=== PATIENT | female | born 1955 | race Caucasian/White ===

== ENCOUNTER 2016-08-28 06:06 | Inpatient (IN) | payer OTHER ==
[2016-08-27 10:08] VITALS: BMI 34.1
[2016-08-28] VITALS (71 sets, daily range): BP systolic 17–188; BP diastolic 48–92; PULSE 63–115; RESP 16–26; Ht 157.5 cm; Wt 83.5 kg
[~2016-08-28] VITALS: Ht 157.5 cm; Wt 83.5 kg
[2016-08-28] MEDS ORDERED: NEOSTIGMINE 3 MG/3 ML SYRINGE ONE (06:43)
[2016-08-28] MEDS ORDERED: FENTAnyl 50 MCG/ML VIAL ONE ×2 (06:43→09:31)
[2016-08-28] MEDS ORDERED: ROCURONIUM 50 MG INJ ONE (06:43)
[2016-08-28] MEDS ORDERED: PROPOFOL 20 ML ONE (06:43)
[2016-08-28] MEDS ORDERED: GLYCOPYRROLATE 0.4 MG INJ ONE (06:43)
[2016-08-28] MEDS ORDERED: LIDOCAINE 2% (SDV) 5 ML INJ ONE (06:43)
[2016-08-28] MEDS ORDERED: ONDANSETRON 4 MG INJ ONE (06:44)
[2016-08-28] MEDS ORDERED: MIDAZOLAM 1 MG/ML 2 ML INJ ONE (06:44)
[2016-08-28] MEDS ORDERED: DEXAMETHASONE 4 MG/ML 1 ML INJ ONE (06:44)
[2016-08-28] MEDS ORDERED: CEFAZOLIN 1 GM INJ ONE (06:45)
[2016-08-28] MEDS ORDERED: MEPERIDINE 25 MG INJ IV PRN (07:00)
[2016-08-28] MEDS ORDERED: ATROPINE 1 MG/10 ML SYRINGE IV PRN (07:00)
[2016-08-28] MEDS ORDERED: HYDROmorphONE (0.2 MG/ML) 10ML SYG IV PRN ×3 (07:00)
[2016-08-28] MEDS ORDERED: ONDANSETRON 4 MG INJ IV PRN ×2 (07:00→22:00)
[2016-08-28] MEDS ORDERED: FENTAnyl 50 MCG/ML VIAL IV PRN ×2 (07:00)
[2016-08-28] MEDS ORDERED: OXYCODONE/ACETAMINOPHEN (5/325) TAB PO PRN ×2 (07:00)
[2016-08-28] MEDS ORDERED: LABETALOL HCL 20MG INJ IV PRN (07:00)
[2016-08-28] MEDS ORDERED: EPHEDrine SULFATE 50 MG/5 ML SYG IV PRN (07:00)
[2016-08-28] MEDS ORDERED: morphine (1 MG/ML) 10ML SYRINGE IV PRN ×3 (07:00)
[2016-08-28] MEDS ORDERED: hydrALAzine 20 MG INJ IV PRN (07:00)
[2016-08-28] MEDS ORDERED: MIDAZOLAM 1 MG/ML 2 ML INJ IV PRN (07:00)
[2016-08-28] MEDS ORDERED: DIPHENHYDRAMINE 50 MG INJ IV PRN (07:00)
[2016-08-28] MEDS ORDERED: ALBU90AE INHALATION (07:10)
[2016-08-28] MEDS ORDERED: BECL8.7A INH (07:10)
[2016-08-28] MEDS ORDERED: LORA10TA3 PO (07:10)
[2016-08-28] MEDS ORDERED: LOSA50TA6 PO (07:18)
[2016-08-28] MEDS ORDERED: SIMV5TAB50 PO (07:18)
[2016-08-28] MEDS ORDERED: LEVO75TA5 PO (07:18)
[2016-08-28] MEDS ORDERED: VIT1TABL85 PO (07:18)
[2016-08-28] MEDS ORDERED: OMEP20CA16 PO (07:18)
[2016-08-28] MEDS ORDERED: FLUT9.9S NASAL (07:18)
[2016-08-28] MEDS ORDERED: RANI300T3 PO (07:18)
[2016-08-28] MEDS ORDERED: CALC-84 PO (07:18)
[2016-08-28] MEDS ORDERED: LIDOCAINE 2%/EPI 30 ML INJ ONE (07:40)
[2016-08-28] MEDS ORDERED: THROMBIN 5000 UNIT VIAL ONE (07:40)
[2016-08-28] MEDS ORDERED: POLYMYXIN/BACITRACIN 1L IRRIG ONE (07:41)
[2016-08-28] MEDS ORDERED: SUCCINYLCHOLINE CHLORIDE 100 MG/5 ML SYG IV ONE (07:53)
[2016-08-28] MEDS ORDERED: FUROSEMIDE 20 MG INJ ONE (09:02)
[2016-08-28] MEDS ORDERED: LABETALOL HCL 20MG INJ ONE (09:02)
[2016-08-28] MEDS ORDERED: hydrALAzine 20 MG INJ ONE (09:31)
[2016-08-28] MEDS ORDERED: HEMOSTATIC MATRIX/ THROMBIN 1 EA SYG ZFS ONE (09:54)
[2016-08-28] MEDS ORDERED: POLYMYXIN/BACITRACIN 1L IRRIG IRR ONE (09:55)
[2016-08-28] MEDS ORDERED: GELATIN SIZE 100 SPONGE ONE (10:36)
[2016-08-28] MEDS ORDERED: NALOXONE (0.4 MG/ML) INJ IV PRN (11:30)
[2016-08-28] MEDS: DOCUSATE SODIUM 100 MG CAP PO SCH ×2 (11:30→21:09)
[2016-08-28] MEDS ORDERED: ACETAMINOPHEN 325 MG TAB PO PRN (11:30)
[2016-08-28] MEDS ORDERED: HYDROmorphONE 1 MG/ML SYG IV PRN (11:30)
[2016-08-28] MEDS ORDERED: HYDROCODONE/APAP (5/325) TAB PO PRN (11:30)
[2016-08-28] MEDS ORDERED: GELATIN SIZE 100 SPONGE TOP ONE (11:34)
[2016-08-28] MEDS ORDERED: CEFAZOLIN 2 GM/50 ML (PMX) 100 ML IVPB SCH (12:00)
[2016-08-28] MEDS ORDERED: HYDROmorphONE 0.2 MG/ML PCA IV SCH (12:30)
[2016-08-28] MEDS: CEFAZOLIN 2 GM/50 ML (PMX) 100 ML IVPB SCH ×2 (13:54→19:25)
--- NOTE | 2016-08-28 15:10 | RADRPT ---
PROCEDURE: Intraoperative imaging of the cervical spine. CLINICAL INDICATION: Neck pain. Intraoperative. TECHNIQUE: 3 images of the cervical spine were obtained in the operating room with portable equipm ent. No radiologist was in attendance. COMPARISON: No prior study is available for comparison. FINDINGS: Surgical instruments are noted overlying the cervical spine. The final images demonstrate anterior fusion with screws at C4-5, C5-6, and C6-7. Intervertebral cages are present at C4-5, C5-6, and C6- 7. IMPRESSION: 1. Intraoperative imaging of the cervical spine. RPTAT: QQ .Nicholas Sabillon MD, MD Date Time Electronically viewed and signed by .Nicholas Sabillon MD, MD on 08/28/2016 15:09 .R/
[2016-08-28] MEDS: LORATADINE 10 MG TAB PO SCH (15:25)
[2016-08-28] MEDS: LOSARTAN 50 MG TAB PO SCH (15:26)
[2016-08-28] MEDS: VITAMIN B COMPLEX/VIT C CAP PO SCH (15:26)
[2016-08-28] MEDS: CALCIUM/VITAMIN D (500/200) TAB PO SCH (16:00)
[2016-08-28] MEDS ORDERED: PANTOPRAZOLE (EC) 40 MG TAB PO SCH (16:00)
--- NOTE | 2016-08-28 17:11 | RADRPT ---
PROCEDURE: CT Cervical Spine without contrast. CLINICAL INDICATION: 60-year-old female with postoperative evaluation. TECHNIQUE: The study was performed on a multislice multidetector CT scanner. Spiral axial 1 mm im ages were obtained through the cervical spine and reformatted at 2.5 mm slice thickness without. 1 or more of the following dose reduction techniques were utilized: Automated exposure control, adjus tment of the mA and/or kV according to patient's size, iterative reconstruction technique. Coronal and sagittal reformations were obtained. The images were reviewed on a PACS workstation. RADIATION DOSE: CTDIvol: 31.5 mGyDLP: 681.3 mGy-cm COMPARISON: No prior studies are available for comparison. FINDINGS: There are postoperative changes from anterior cervical discectomy and fusion at C4-5, C5-6 and C6-7 with anterior interbody fusion devices in place. The hardware is intact, with satisfactory alignmen t. The alignment of the cervical spine is within normal limits. There are postoperative changes in the prevertebral soft tissues. The remaining intervertebral discs are preserved. The marrow densi ty is within normal limits. The remaining vertebral body heights are maintained. The cervical mao l is unremarkable. There is a no bone destruction or sclerosis. The paraspinal soft tissues are unre markable. No significant paraspinal soft tissue swelling. C2-3: The posterior margin of the disc, thecal sac and neural foramina are normal in appearance. C3-4: There is a 1 mm posterior disc/osteophyte complex. The thecal sac and neural foramina are pat ent. C4-5: No residual disc material is seen. The thecal sac and neural foramina are patent. C5-6: No residual disc material is seen. The thecal sac and neural foramina are patent. C6-7: No residual disc material is seen. The thecal sac and neural foramina are patent. C7-T1: The posterior margin of the disc, thecal sac and neural foramina are normal in appearance. IMPRESSION: 1. Postoperative change from anterior cervical discectomy and fusion at C4-5, C5-6 and a C6-7 with anterior interbody fusion devices in place and satisfactory alignment of the surgical hardware. RPTAT: HGAS .Gera Lambert MD, MD Date Time Electronically viewed and signed by .Gera Lambert MD, MD on 08/28/2016 17:10 .S/
--- NOTE | 2016-08-28 19:47 | HP ---
DATE OF ADMISSION: 08/28/2016 CHIEF COMPLAINT/HISTORY OF PRESENT ILLNESS: The patient is a 60-year-old female who was se en by Dr. Herr as an outpatient for chronic neck pain and radiculopathy to the right upper extremit y. The patient also had associated numbness and tingling as well as back pain in the right lower ext remity with associated numbness and tingling. The patient underwent MRI of the C-spine as well as allison mbar spine which revealed extensive degenerative changes on multiple levels. MRI of the brain revea led recurrent cyst. The patient had failed conservative treatment. Patient was brought in to [facility] and underwent anterior cervical decompression and fusion at C4 through C7. Patient postop eratively denies any chest pain or shortness of breath, no abdominal pain. No leg edema. No reporte d vomiting. The patient is breathing comfortably and is awake, alert, and is able to move all extre mities. The patient is being admitted for further evaluation and management. REVIEW OF SYSTEMS: Rather limited due to recent postoperative state. PAST SURGICAL HISTORY: None. PAST MEDICAL HISTORY: The patient has some sort of urinary symptoms for which she underwent cystosc opy, details not available. ALLERGIES: NONE. SOCIAL HISTORY: No smoking, no alcohol. FAMILY HISTORY: Noncontributory. PHYSICAL EXAMINATION: GENERAL: The patient is conscious, awake, alert. VITAL SIGNS: Temperature 98.3, pulse 76, respirations 21, blood pressure 140/72, O2 saturation 97% on 2 liters nasal cannula. HENT: Conjunctivae and lids normal. Oropharynx examination was deferred due to C-spine collar. CHEST: Fairly clear. CARDIOVASCULAR: Normal. No murmur. ABDOMEN: Soft, nondistended, nontender. EXTREMITIES: No leg edema. NEUROLOGIC: The patient is awake, alert, follows simple commands, moves all extremities. GENITOURINARY: A Rowell catheter in place draining clear urine. LABORATORY DATA: Labs revealed normal coagulation profile, hemoglobin is 14.4. WBC 6.7, platelets 240, creatinine 0.8. Potassium 3.6, sodium 139, BUN 17, glucose 104. EKG revealed normal sinus rhy thm with no acute ST changes. Chest x-ray unremarkable. IMPRESSION: 1. Status post cervical spinal stenosis, status post anterior cervical diskectomy and fusion at C4 through C7. 2. Hypothyroidism. 3. Gastroesophageal reflux disease. 4. Asthma. 5. Dyslipidemia. 6. Hypertension. PLAN: 1. The patient will be admitted in ICU and will be started on clear liquid diet, which will be adva nced as tolerated. 2. The patient will be continued on Synthroid, ____ and Cozaar. We will continue to follow her fr om a medical standpoint. The patient will receive IV cefazolin as per protocol and for dyslipidemia the patient will be started on Lipitor. 3. We will use SCD for DVT prophylaxis. We will continue to follow her. Dictated By: FELICIA PASTRANA/NEWTON Conf#: [id number] DID#: [id number]
[2016-08-28] MEDS ORDERED: RANITIDINE 150 MG TAB PO SCH (21:00)
[2016-08-28] MEDS: D5W-0.45 NACL + KCL 20 MEQ 1,000 ML IV SCH (21:09)
[2016-08-28] MEDS: ATORVASTATIN 10 MG TAB PO SCH (21:09)
[2016-08-29] VITALS (12 sets, daily range): BP systolic 104–120; BP diastolic 53–75; PULSE 42–96; RESP 10–26
[2016-08-29] MEDS: CEFAZOLIN 2 GM/50 ML (PMX) 100 ML IVPB SCH ×2 (00:54→06:06)
[2016-08-29] MEDS: LEVOTHYROXINE 75 MCG TAB PO SCH (06:06)
[2016-08-29 07:39] LABS: CALCIUM 8.5 mg/dl (8.4-10.2); CREATININE 0.68 mg/dl (0.44-1.00); POTASSIUM 3.1 mmol/L (3.5-5.1)
[2016-08-29] MEDS ORDERED: POTASSIUM CHLORIDE 20 MEQ POWDER FOR ORAL SOLN PO ONE (08:30)
[2016-08-29] MEDS: LORATADINE 10 MG TAB PO SCH (09:26)
[2016-08-29] MEDS: CALCIUM/VITAMIN D (500/200) TAB PO SCH (09:26)
[2016-08-29] MEDS: DOCUSATE SODIUM 100 MG CAP PO SCH ×2 (09:27→22:04)
[2016-08-29] MEDS: VITAMIN B COMPLEX/VIT C CAP PO SCH (09:28)
[2016-08-29] MEDS: LOSARTAN 50 MG TAB PO SCH (09:28)
[2016-08-29 10:11] LABS: HEMATOCRIT 35.2 % (37.0-47.0); HEMOGLOBIN 11.4 g/dl (12.0-16.0)
[2016-08-29] MEDS ORDERED: VITAMIN A & D 5 GM OINT PACKET TOP ONE (11:24)
[2016-08-29] MEDS: PANTOPRAZOLE (EC) 40 MG TAB PO SCH (12:23)
[2016-08-29] MEDS: D5W-0.45 NACL + KCL 20 MEQ 1,000 ML IV SCH ×2 (12:23→21:10)
--- NOTE | 2016-08-29 12:36 | PN ---
Date/Time of Note Date/Time of Note DATE: 08/29/16 TIME: 12:35 Assessment/Plan VTE Prophylaxis VTE Prophylaxis Intervention: other Lines/Catheters IV Catheter Type (from Nrs): Saline Lock Urinary Cath still in place: Yes Reason Cath still needed: skin wounds contaminated by urine Assessment/Plan Chief Complaint/Hosp Course 1. Status post cervical spinal stenosis, status post anterior cervical diskectomy and fusion at C4 through C7. 2. Hypothyroidism. 3. Gastroesophageal reflux disease. 4. Asthma. 5. Dyslipidemia. 6. Hypertension. Problems: Subjective 24 Hr Interval Summary Free Text/Dictation Patient denies any pain Exam/Review of Systems Vital Signs Vitals Vital Signs Date Time Temp Pulse Resp B/P Pulse Ox O2 Delivery O2 Flow Rate FiO2 08/29/16 10:00 74 22 104/75 94 Nasal Cannula 08/29/16 08:00 2.0 08/29/16 08:00 97.5 Intake and Output 08/28/16 08/28/16 08/29/16 15:00 23:00 07:00 Intake Total 1800 ml 1340 ml 965 ml Output Total 870 ml 2600 ml 545 ml Balance 930 ml -1260 ml 420 ml Exam Constitutional: well developed Head: atraumatic, normocephalic Neck: supple Respiratory: diminished breath sounds Cardiovascular: regular rate and rhythm Gastrointestinal: non-tender, soft Extremities: normal pulses Results Result Diagram: 08/29/16 0530 08/29/16 0530 Results 24 hrs Laboratory Tests Test 08/29/16 05:30 Hemoglobin 11.4 L Hematocrit 35.2 L Sodium Level 143 Potassium Level 3.1 L Chloride Level 108 Carbon Dioxide Level 23 Anion Gap 15 Blood Urea Nitrogen 12 Creatinine 0.68 Glucose Level 153 Calcium Level 8.5 Medications Medications Current Medications Loratadine (Claritin) 10 mg DAILY PO Last administered on 08/29/16 09:26; Admin Dose 10 MG; Start 08/28/16 at 16:00 Losartan Potassium (Cozaar) 50 mg DAILY PO Last administered on 08/29/16 09:28 ; Admin Dose 50 MG; Start 08/28/16 at 16:00 Calcium/Vitamin D ([place]/ Vit-D (500/200)) 1 tab DAILY PO Last administered on 08/29/16 09:26; Admin Dose 1 TAB; Start 08/28/16 at 16:00 Atorvastatin Calcium (Lipitor) 10 mg QHS PO Last administered on 08/28/16 21: 09; Admin Dose 10 MG; Start 08/28/16 at 21:00 Vitamin B Complex/ Vitamin C (Beroc[place]) 1 cap DAILY PO Last administered on 08/29 09:28; Admin Dose 1 CAP; Start 08/29/16 at 09:00 Acetaminophen/ Hydrocodone Bitart ([place] (5/325)) 2 tab Q4H PRN PO PAIN LEVEL 6 -10; Start 08/28/16 at 11:30 Docusate Sodium (Colace) 100 mg BID PO Last administered on 08/29/16 09:27; Admin Dose 100 MG; Start 08/28/16 at 11:30 Acetaminophen (Tylenol Tab) 650 mg Q4H PRN PO TEMP GREATER THAN 101F OR [place] Last administered on 08/28/16 21:09; Admin Dose 650 MG; Start 08/28/16 at 11:30 Naloxone HCl (Narcan) 0.2 mg Q2M PRN IV RR 8 BREATHS/MIN OR LESS; Start at 11:30 Hydromorphone HCl 0.5 mg 0.5 mg Q2H PRN IV PAIN; Start 08/28/16 at 11:30 Potassium Chloride/Dextrose/ Sod Cl (D5-1/2ns + KCl 20 Meq) 1,000 ml @ 75 mls/ hr [id number] IV Last administered on 08/29/16 12:23; Admin Dose 75 MLS/HR; Start 08/28/16 at 18:30 Ondansetron HCl (Zofran Inj) 4 mg Q6H PRN IV NAUSEA AND/OR VOMITING Last administered on 08/28/16 22:06; Admin Dose 4 MG; Start 08/28/16 at 22:00 Pantoprazole (Protonix Tab) 40 mg DAILY@06 PO Last administered on 08/29/16 12 :23; Admin Dose 40 MG; Start 08/29/16 at 10:00 REJI FREY Aug 29, 2016 12:36
[2016-08-29] MEDS: ATORVASTATIN 10 MG TAB PO SCH (22:03)
[2016-08-30] MEDS: D5W-0.45 NACL + KCL 20 MEQ 1,000 ML IV SCH ×2 (01:53→23:54)
[2016-08-30] MEDS: LEVOTHYROXINE 75 MCG TAB PO SCH (05:53)
[2016-08-30] MEDS: PANTOPRAZOLE (EC) 40 MG TAB PO SCH (05:54)
[2016-08-30 08:00] VITALS: BP 129/72; RESP 16
[2016-08-30] MEDS: DOCUSATE SODIUM 100 MG CAP PO SCH ×2 (08:41→20:08)
[2016-08-30] MEDS: LORATADINE 10 MG TAB PO SCH (08:41)
[2016-08-30] MEDS: CALCIUM/VITAMIN D (500/200) TAB PO SCH (08:42)
[2016-08-30] MEDS: LOSARTAN 50 MG TAB PO SCH (08:42)
[2016-08-30] MEDS: VITAMIN B COMPLEX/VIT C CAP PO SCH (08:43)
--- NOTE | 2016-08-30 12:30 | PN ---
Date/Time of Note Date/Time of Note DATE: 08/30/16 TIME: 12:30 Assessment/Plan VTE Prophylaxis VTE Prophylaxis Intervention: other Lines/Catheters [facility] Saline Lock Urinary Cath still in place: No Assessment/Plan Chief Complaint/Hosp Course 1. Status post cervical spinal stenosis, status post anterior cervical diskectomy and fusion at C4 through C7. 2. Hypothyroidism. 3. Gastroesophageal reflux disease. 4. Asthma. 5. Dyslipidemia. 6. Hypertension. Problems: Subjective 24 Hr Interval Summary Free Text/Dictation Patient has throat pain Exam/Review of Systems Vital Signs Vitals Vital Signs Date Time Temp Pulse Resp B/P Pulse Ox O2 Delivery O2 Flow Rate FiO2 08/30/16 08:00 98.1 93 16 129/72 100 08/29/16 10:00 Nasal Cannula 08/29/16 08:00 2.0 Intake and Output 08/29/16 08/29/16 08/30/16 15:00 23:00 07:00 Intake Total 855 ml 1400 ml 1405 ml Output Total 500 ml 900 ml 500 ml Balance 355 ml 500 ml 905 ml Exam Constitutional: well developed Head: atraumatic, normocephalic Neck: supple Respiratory: clear to auscultation Cardiovascular: regular rate and rhythm Gastrointestinal: non-tender, soft Extremities: normal pulses Results Result Diagram: 08/29/1652908/29/16 0530 Medications Medications Current Medications Loratadine (Claritin) 10 mg DAILY PO Last administered on 08/30/16 08:41; Admin Dose 10 MG; Start 08/28/16 at 16:00 Losartan Potassium (Cozaar) 50 mg DAILY PO Last administered on 08/30/16 08:42 ; Admin Dose 50 MG; Start 08/28/16 at 16:00 Calcium/Vitamin D (Oyster Shell/ Vit-D (500/200)) 1 tab DAILY PO Last administered on 08/30/16 08:42; Admin Dose 1 TAB; Start 08/28/16 at 16:00 Atorvastatin Calcium (Lipitor) 10 mg QHS PO Last administered on 08/29/16 22: 03; Admin Dose 10 MG; Start 08/28/16 at 21:00 Vitamin B Complex/ Vitamin C (Berocca) 1 cap DAILY PO Last administered on 08/30 08:43; Admin Dose 1 CAP; Start 08/29/16 at 09:00 Acetaminophen/ Hydrocodone Bitart ([place] (5/325)) 2 tab Q4H PRN PO PAIN LEVEL 6 -10; Start 08/28/16 at 11:30 Docusate Sodium (Colace) 100 mg BID PO Last administered on 08/30/16 08:41; Admin Dose 100 MG; Start 08/28/16 at 11:30 Acetaminophen (Tylenol Tab) 650 mg Q4H PRN PO TEMP GREATER THAN 101F OR [place] Last administered on 08/28/16 21:09; Admin Dose 650 MG; Start 08/28/16 at 11:30 Naloxone HCl (Narcan) 0.2 mg Q2M PRN IV RR 8 BREATHS/MIN OR LESS; Start at 11:30 Hydromorphone HCl 0.5 mg 0.5 mg Q2H PRN IV PAIN; Start 08/28/16 at 11:30 Potassium Chloride/Dextrose/ Sod Cl (D5-1/2ns + KCl 20 Meq) 1,000 ml @ 75 mls/ hr [id number] IV Last administered on 08/30/16 01:53; Admin Dose 75 MLS/HR; Start 08/28/16 at 18:30 Ondansetron HCl (Zofran Inj) 4 mg Q6H PRN IV NAUSEA AND/OR VOMITING Last administered on 08/28/16 22:06; Admin Dose 4 MG; Start 08/28/16 at 22:00 Pantoprazole (Protonix Tab) 40 mg DAILY@06 PO Last administered on 08/30/16 05 :54; Admin Dose 40 MG; Start 08/29/16 at 10:00 REJI FREY Aug 30, 2016 12:30
--- NOTE | 2016-08-30 15:00 | PN ---
Date/Time of Note Date/Time of Note DATE: 08/30/16 TIME: 14:56 Assessment/Plan VTE Prophylaxis VTE Prophylaxis Intervention: ambulation Lines/Catheters IV Catheter Type (from Nrsg): Saline Lock Urinary Cath still in place: No Assessment/Plan Assessment/Plan s/p acdf C4-7. pod 2 doing well with pt/ot c/o mild dysphasia with meals ct cspine stable plan cont supportive care aspen collar x 6 weeks low dose steroids dc home in am if stable overnight d/w family and RN follow up in 2 weeks okay to shower in 2 days. Subjective 24 Hr Interval Summary Free Text/Dictation S: doing well collar in place very mild difficulty with meals Exam/Review of Systems Vital Signs Vitals Vital Signs Date Time Temp Pulse Resp B/P Pulse Ox O2 Delivery O2 Flow Rate FiO2 08/30/16 08:00 98.1 93 16 129/72 100 08/29/16 10:00 Nasal Cannula 08/29/16 08:00 2.0 Intake and Output 08/29/16 08/29/16 08/30/16 14:59 22:59 06:59 Intake Total 930 ml 1400 ml 1405 ml Output Total 600 ml 900 ml 500 ml Balance 330 ml 500 ml 905 ml Exam Neurological: other (MS: [id number] CN: perrl M: 5/5 strength x 4 S: improving bilat UE radic/pain [place] improving) Results Result Diagram: 08/29/16 0530 08/29/16 0530 Medications Medications Current Medications Loratadine (Claritin) 10 mg DAILY PO Last administered on 08/30/16 08:41; Admin Dose 10 MG; Start 08/28/16 at 16:00 Losartan Potassium (Cozaar) 50 mg DAILY PO Last administered on 08/30/16 08:42 ; Admin Dose 50 MG; Start 08/28/16 at 16:00 Calcium/Vitamin D (Oyster Shell/ Vit-D (500/200)) 1 tab DAILY PO Last administered on 08/30/16 08:42; Admin Dose 1 TAB; Start 08/28/16 at 16:00 Atorvastatin Calcium (Lipitor) 10 mg QHS PO Last administered on 08/29/16 22: 03; Admin Dose 10 MG; Start 08/28/16 at 21:00 Vitamin B Complex/ Vitamin C (Berocca) 1 cap DAILY PO Last administered on 08/30 08:43; Admin Dose 1 CAP; Start 08/29/16 at 09:00 Acetaminophen/ Hydrocodone Bitart ([place] (5/325)) 2 tab Q4H PRN PO PAIN LEVEL 6 -10; Start 08/28/16 at 11:30 Docusate Sodium (Colace) 100 mg BID PO Last administered on 08/30/16 08:41; Admin Dose 100 MG; Start 08/28/16 at 11:30 Acetaminophen (Tylenol Tab) 650 mg Q4H PRN PO TEMP GREATER THAN 101F OR [place] Last administered on 08/28/16 21:09; Admin Dose 650 MG; Start 08/28/16 at 11:30 Naloxone HCl (Narcan) 0.2 mg Q2M PRN IV RR 8 BREATHS/MIN OR LESS; Start at 11:30 Hydromorphone HCl 0.5 mg 0.5 mg Q2H PRN IV PAIN; Start 08/28/16 at 11:30 Potassium Chloride/Dextrose/ Sod Cl (D5-1/2ns + KCl 20 Meq) 1,000 ml @ 75 mls/ hr [id number] IV Last administered on 08/30/16 01:53; Admin Dose 75 MLS/HR; Start 08/28/16 at 18:30 Ondansetron HCl (Zofran Inj) 4 mg Q6H PRN IV NAUSEA AND/OR VOMITING Last administered on 08/28/16 22:06; Admin Dose 4 MG; Start 08/28/16 at 22:00 Pantoprazole (Protonix Tab) 40 mg DAILY@06 PO Last administered on 08/30/16 05 :54; Admin Dose 40 MG; Start 08/29/16 at 10:00 KIMMIE BASHIR NP Aug 30, 2016 15:00
[2016-08-30 19:24] VITALS: BP 129/78; RESP 18
[2016-08-30] MEDS: ATORVASTATIN 10 MG TAB PO SCH (20:07)
[2016-08-30] MEDS: DEXAMETHASONE 4 MG TAB PO SCH (20:08)
[2016-08-30] MEDS ORDERED: DEXAMETHASONE 2 MG TAB PO SCH (21:00)
[2016-08-31 05:23] LABS: ADD SCAN DIFF NO
[2016-08-31 05:29] LABS: BASOPHILS % 0.2 % (0.0-2.0); EOSINOPHILS % 0.1 % (0.0-7.0); HEMATOCRIT 43.3 % (37.0-47.0); HEMOGLOBIN 14.4 g/dl (12.0-16.0); LYMPHOCYTES # 1.4 10^3/ul (0.8-2.9); LYMPHOCYTES % 16.5 % (15.0-51.0); MEAN CORPUSCULAR HEMOGLOBIN 30.4 pg (29.0-33.0); MEAN CORPUSCULAR HGB CONC 33.3 g/dl (32.0-37.0); MEAN CORPUSCULAR VOLUME 91.4 fl (82.0-101.0); MEAN PLATELET VOLUME 11.2 fl (7.4-10.4); MONOCYTE # 0.4 10^3/ul (0.3-0.9); MONOCYTES % 4.7 % (0.0-11.0); NEUTROPHIL # 6.8 10^3/ul (1.6-7.5); PLATELET COUNT 212 10^3/UL (140-415); RED BLOOD COUNT 4.74 10^6/ul (4.20-5.40); RED CELL DISTRIBUTION WIDTH 13.2 % (11.5-14.5); WHITE BLOOD COUNT 8.7 10^3/ul (4.8-10.8)
[2016-08-31 05:48] LABS: CALCIUM 9.8 mg/dl (8.4-10.2); CREATININE 0.67 mg/dl (0.44-1.00); POTASSIUM 4.4 mmol/L (3.5-5.1)
[2016-08-31] MEDS: LEVOTHYROXINE 75 MCG TAB PO SCH (06:06)
[2016-08-31] MEDS: PANTOPRAZOLE (EC) 40 MG TAB PO SCH (06:07)
[2016-08-31 08:01] VITALS: BP 121/68; RESP 16
[2016-08-31] MEDS: LORATADINE 10 MG TAB PO SCH (08:26)
[2016-08-31] MEDS: VITAMIN B COMPLEX/VIT C CAP PO SCH (08:26)
[2016-08-31] MEDS: DOCUSATE SODIUM 100 MG CAP PO SCH (08:27)
[2016-08-31] MEDS: LOSARTAN 50 MG TAB PO SCH (08:27)
[2016-08-31] MEDS: DEXAMETHASONE 4 MG TAB PO SCH (08:27)
[2016-08-31] MEDS: CALCIUM/VITAMIN D (500/200) TAB PO SCH (08:28)
[2016-08-31] MEDS: D5W-0.45 NACL + KCL 20 MEQ 1,000 ML IV SCH (13:10)
== END 2016-08-31 17:15 | disposition home or self-care (01) | DRG 473 ==
LOC: REC 06:06 → EDSTATUS 08:00 → ICU 20:47 → MS1 08-29 11:00
PROVIDERS: ADMIT Neurological Surgery; ATTEND Neurological Surgery
PROC: 0RB30ZZ Excision of Cervical Vertebral Disc, Open Approach (ICD-10-PCS; 2016-08-28)
PROC: 01N10ZZ Release Cervical Nerve, Open Approach (ICD-10-PCS; 2016-08-28)
PROC: 0RG20A0 Fusion of 2 or more Cervical Vertebral Joints with Interbody Fusion Device, Anterior Approach, Anterior Column, Open Approach (ICD-10-PCS; principal; 2016-08-28 08:00)
DX: M47.22 Other spondylosis with radiculopathy, cervical region (principal); R13.10 Dysphagia, unspecified; I10 Essential (primary) hypertension; E03.9 Hypothyroidism, unspecified; K21.9 Gastro-esophageal reflux disease without esophagitis; J45.909 Unspecified asthma, uncomplicated; E78.5 Hyperlipidemia, unspecified
CPT/HCPCS: 72020; 72125; 80048; 82962; 85014; 85018; 85025; 86850; 86900; 86901; 87086; 88305; 97116; 97163; 97530; J1940; J0360; J0690; J1100; J1170; J1644; J2250; J2405; J2710; J3010; J3480; J7999

== ENCOUNTER 2016-11-19 07:14 | Day surgery (SDC) | payer OTHER ==
[~2016-11-19] VITALS: Ht 154.9 cm; Wt 81.3 kg
[~2016-11-19 07:14] MED LIST: ALBU90AE INHALATION; BECL8.7A INH; CALC-84 PO; FLUT9.9S NASAL; LEVO75TA5 PO; LOSA50TA6 PO; OMEP20CA16 PO; RANI300T3 PO; SIMV5TAB50 PO; VIT1TABL85 PO
[2016-11-19] MEDS ORDERED: CYCLOBENZAPRINE (08:47)
[2016-11-19] MEDS ORDERED: ADVIL (08:47)
[2016-11-19] MEDS ORDERED: PROPOFOL 20 ML ONE (09:02)
[2016-11-19] MEDS ORDERED: FENTAnyl 50 MCG/ML VIAL ONE (09:02)
[2016-11-19] MEDS ORDERED: MIDAZOLAM 1 MG/ML 2 ML INJ ONE (09:02)
--- NOTE | 2016-11-19 09:38 | OPPN ---
Date/Time of Note Date/Time of Note DATE: 11/19/16 TIME: 09:35 Operative Report Preoperative Diagnosis Chronic heartburn Screening colonoscopy Postoperative Diagnosis Hernia and gastroesophageal reflux disease Gastritis with erosions Diverticulosis of the colon Internal hemorrhoid Operation/Procedure Performed Esophagogastroduodenoscopy and biopsy Colonoscopy Provider: ERMA DILLARD MD Anesthesia Type: MAC Estimated blood loss: none Specimens Gastric mucosal biopsy Grafts/Implants: none Complications: no ERMA DILLARD MD Nov 19, 2016 09:38
[2016-11-19 09:56] VITALS: BP 139/79; PULSE 74; RESP 24
--- NOTE | 2016-11-19 10:45 | GILP ---
DATE OF PROCEDURE: 11/19/2013 PROCEDURE PERFORMED: 1. Esophagogastroduodenoscopy and biopsy. 2. Colonoscopy. SURGEON: Mercedez Marshall MD. PREOPERATIVE DIAGNOSES: 1. Chronic heartburn. 2. Screening colonoscopy. POSTOPERATIVE DIAGNOSES: 1. Hiatal hernia. 2. Gastroesophageal reflux disease. 3. Gastritis with erosions. 4. Gastric mucosal biopsies were taken for Helicobacter pylori test. 5. Colonoscopy all the way to the cecum. 6. Diverticulosis of the colon. 7. Internal hemorrhoids. 8. No colon neoplasm was identified. INDICATION: Ms. Ekaterina Grove is a 60-year-old female patient who had chronic heartburn not responding to therapy. She also needed a screening colonoscopy. The procedures and possible complications were well explained to the patient. The patient understood and consented to the procedures. DESCRIPTION OF PROCEDURE: Under the influence of anesthesia, the gastroscope was carefully introduced into the esophagus, and under direct vision, it was advanced to the stomach, into the pylorus, into the duodenal bulb, and descending duodenum. FINDINGS: Esophagus: The patient had hiatal hernia and gastroesophageal reflux disease. Stomach: She had gastritis with erosions. Gastric mucosal biopsies were taken for Helicobacter pylori test. Duodenum was normal. The colonoscope was carefully introduced in the rectum, and under direct vision, it was advanced all the way to the cecum. FINDINGS: The patient had diverticulosis of the colon. She also had internal hemorrhoids. No colon neoplasm was identified. She tolerated the procedures very well. There was no complication from the procedures. At the end of procedure, she was awake with stable vital signs and she was discharged home in the care of her family. IMPRESSION: Please see postop diagnoses. PLAN: 1. Continue omeprazole and Zantac. 2. Await H pylori test report. 3. High-fiber diet. 4. Next screening colonoscopy in 10 years. Dictated By: MD KAREN Fonseca/lizett/feliz /Document#: [id number]
== END 2016-11-19 12:45 | disposition home or self-care (01) ==
LOC: GIL 07:14
PROVIDERS: ATTEND Internal Medicine Gastroenterology
DX: Z12.11 Encounter for screening for malignant neoplasm of colon (principal); K57.30 Diverticulosis of large intestine without perforation or abscess without bleeding; K64.8 Other hemorrhoids; K29.70 Gastritis, unspecified, without bleeding; K21.9 Gastro-esophageal reflux disease without esophagitis; K44.9 Diaphragmatic hernia without obstruction or gangrene; J45.909 Unspecified asthma, uncomplicated; E78.5 Hyperlipidemia, unspecified; I10 Essential (primary) hypertension; E66.9 Obesity, unspecified; Z68.33 Body mass index [BMI] 33.0-33.9, adult
CPT/HCPCS: 43239; 45378; 87081; J2250; J3010; Z7610

== ENCOUNTER 2016-12-15 10:00 | Inpatient (IN) | payer OTHER ==
[2016-12-15] VITALS (10 sets, daily range): BP systolic 107–154; BP diastolic 57–74; PULSE 70–89; RESP 16–20; Ht 154.9 cm; Wt 82.1 kg
[~2016-12-15] VITALS: Ht 154.9 cm; Wt 82.1 kg
[~2016-12-15 10:00] MED LIST changes: +ADVIL; +CYCLOBENZAPRINE
[2016-12-15] MEDS ORDERED: ALBU18HF INHALATION (14:51)
[2016-12-15] MEDS ORDERED: SIMV20TA PO (14:51)
[2016-12-15] MEDS ORDERED: CHOL100062 PO (14:52)
--- NOTE | 2016-12-15 16:27 | HPN ---
Date/Time of Note Date/Time of Note DATE: 12/15/16 TIME: 16:25 Interval H&P Admission Note Pt. seen H&P reviewed: No system changes Neurosurgery Preop Note No significant Change Extensive d/w patient about all available options including surgery vs no surgery. Overall risk/complications 3-5% overall thoroughly discussed. All questions answered and no guarantees given. Post op Dispo ICU BRYANNA TREVINO MD Dec 15, 2016 16:27
[2016-12-15] MEDS ORDERED: THROMBIN 5000 UNIT VIAL ONE (17:10)
[2016-12-15] MEDS ORDERED: GELATIN SIZE 100 SPONGE ONE (17:10)
[2016-12-15] MEDS ORDERED: LIDOCAINE 2% (SDV) 5 ML INJ ONE (17:22)
[2016-12-15] MEDS ORDERED: ROCURONIUM 50 MG INJ ONE (17:22)
[2016-12-15] MEDS ORDERED: FENTAnyl 50 MCG/ML VIAL ONE (17:22)
[2016-12-15] MEDS ORDERED: MIDAZOLAM 1 MG/ML 2 ML INJ ONE (17:22)
[2016-12-15] MEDS ORDERED: SUCCINYLCHOLINE CHLORIDE 100 MG/5 ML SYG IV ONE (17:22)
[2016-12-15] MEDS ORDERED: PROPOFOL 20 ML ONE (17:22)
[2016-12-15] MEDS ORDERED: POLYMYXIN/BACITRACIN 1L IRRIG ONE (17:25)
[2016-12-15] MEDS ORDERED: BACITRACIN 50000 UNITS INJ ONE (17:25)
[2016-12-15] MEDS ORDERED: LIDOCAINE 2%/EPI 30 ML INJ ONE (17:28)
[2016-12-15] MEDS ORDERED: BUPIVACAINE 0.25% (MPF) 30 ML INJ ONE (17:29)
[2016-12-15] MEDS ORDERED: DEXAMETHASONE 4 MG/ML 1 ML INJ ONE (17:50)
[2016-12-15] MEDS ORDERED: ONDANSETRON 4 MG INJ ONE (17:50)
[2016-12-15] MEDS ORDERED: CEFAZOLIN 1 GM INJ ONE (17:50)
[2016-12-15] MEDS ORDERED: METOCLOPRAMIDE 10 MG INJ ONE (17:50)
[2016-12-15] MEDS ORDERED: ROPIVACAINE 0.5 % 30 ML VIAL ONE (18:17)
[2016-12-15] MEDS ORDERED: ACETAMINOPHEN 1000MG/100ML IV 100 ML ONE (18:20)
[2016-12-15] MEDS ORDERED: SODIUM CL BACTERIOSTATIC 30 ML INJ ONE (18:25)
[2016-12-15] MEDS ORDERED: HYDROmorphONE 2 MG/ML SYG ONE (18:36)
[2016-12-15] MEDS ORDERED: GLYCOPYRROLATE 0.4 MG INJ ONE (19:26)
[2016-12-15] MEDS ORDERED: NEOSTIGMINE 3 MG/3 ML SYRINGE ONE (19:26)
--- NOTE | 2016-12-15 19:47 | OPPN ---
Date/Time of Note Date/Time of Note DATE: 12/15/16 TIME: 19:44 Operative Report Preoperative Diagnosis Mechanical LBP with LE Radiculopathy Postoperative Diagnosis same Operation/Procedure Performed Bilateral L5 - S1 TLIF with ISF Surgeon see signature line technology assistant Carlos Lemons, LAURA-BC, CHEMICAL TESTER Anesthesia: general Estimated blood loss: 50 - 100 ml's Transfusion Required none Specimen L5-S1 Disc Grafts/Implants cage and ISF device Complications none BRYANNA TREVINO MD Dec 15, 2016 19:47
[2016-12-15] MEDS ORDERED: NACL 0.9% 3 ML SYG IV SCH (20:00)
[2016-12-15] MEDS ORDERED: HYDROmorphONE 0.2 MG/ML PCA IV SCH (20:00)
[2016-12-15] MEDS ORDERED: HYDROCODONE/APAP (5/325) TAB PO PRN (20:00)
[2016-12-15] MEDS ORDERED: NALOXONE (0.4 MG/ML) INJ IV PRN (20:00)
[2016-12-15] MEDS: NS + KCL 20 MEQ 1,000 ML IV SCH (20:32)
[2016-12-15] MEDS: CEFAZOLIN 1 GM/50 ML (PMX) 50 ML IVPB SCH (20:33)
--- NOTE | 2016-12-15 21:39 | RADRPT ---
PROCEDURE: CT Lumbar Spine without contrast. CLINICAL INDICATION: Postop fusion. TECHNIQUE: The study was performed on a multislice multidetector CT scanner. Spiral axial 1 mm im ages were obtained through the lumbar spine without intravenous contrast. 1 or more of the following dose reduction techniques were utilized: Automated exposure control, adjustment of the mA and/or k V according to patient's size, iterative reconstruction technique. Coronal and sagittal reformation s were obtained. The images were reviewed on a PACS workstation. RADIATION DOSE: CTDIvol: 38.4 mGyDLP: 1089.5 mGy-cm COMPARISON: No prior studies are available for comparison. FINDINGS: There has been interval postoperative changes from spinous process fusion device placement at L5-S1. There is a disc-spacer at L5-S1. The hardware is intact and there is to the in satisfactory positio n. There is a left paraspinal drain in place. There are postoperative changes in the posterior marya hattie soft tissues. No evidence of inflammatory changes. alignment of the lumbar spine is normal. N o vertebral body subluxation is seen. The intervertebral discs are normal in height. The vertebral body heights and marrow density are normal. The paraspinal soft tissues unremarkable. No signific ant paraspinal soft tissue swelling. L1-L2: The posterior margin of the disc is normal in appearance. No significant disc bulge or prot rusion is evident. The central canal and neural foramina are adequately patent. L2-L3: The posterior margin of the disc is normal in appearance. No significant disc bulge or prot rusion is evident. The central canal and neural foramina are adequately patent. L3-L4: There is a 1 mm annular disc bulge without significant indentation on the ventral thecal sac . The thecal sac and lateral recesses are patent. There is mild bilateral facet spondylosis. The neural foramina are patent. L4-L5: There is a 2 mm annular disc bulge. The thecal sac and lateral recesses are patent. There is mild bilateral facet spondylosis. The neural foramina are patent. L5-S1: There are postoperative changes from spinous process fusion device placement and left-sided hemilaminotomy. The hardware is intact. The thecal sac and lateral recesses are patent. There is no significant epidural soft tissue swelling. There is mild bilateral neural foraminal narrowing. IMPRESSION: 1. Postoperative changes from posterior fusion at L5-S1 with intact surgical hardware. RPTAT: HGAS .Gera Lambert MD, Date Time Electronically viewed and signed by .Gera Lambert MD, MD on 12/15/2016 21:39 .S/
--- NOTE | 2016-12-15 21:40 | RADRPT ---
PROCEDURE: Intraoperative fluoroscopy. CLINICAL INDICATION: Intraoperative fluoroscopy during lumbar spine surgery. TECHNIQUE: 4 spot intraoperative fluoroscopic images were provided. The images were reviewed on a high-resolution PACS workstation. COMPARISON: None available FINDINGS: Multiple spot intraoperative fluoroscopic views were provided during lumbar spine surgery. The imag es demonstrate initial metallic probe at the L5-S1 level. Subsequent images demonstrate placement of the disc-spacer at L5-S1. The final image demonstrates placement of the spinous process fusion yohana ce. The total fluoroscopy time was 9.5 seconds. IMPRESSION: 1. Multiple spot intraoperative fluoroscopic views during lumbar fusion were provided. 2. Please see operative report of the same day for further information. RPTAT: HGAS .Gera Lambert MD, Date Time Electronically viewed and signed by .Gera Lambert MD, MD on 12/15/2016 21:40 .S/
[2016-12-15] MEDS: METOPROLOL 25 MG TAB PO SCH (23:00)
[2016-12-15] MEDS ORDERED: hydrALAzine 20 MG INJ IV PRN (23:00)
[2016-12-15] MEDS ORDERED: morphine 2 MG INJ IV PRN (23:00)
[2016-12-15] MEDS ORDERED: ONDANSETRON 4 MG INJ IV PRN (23:00)
[2016-12-16] VITALS (32 sets, daily range): BP systolic 85–120; BP diastolic 41–71; PULSE 60–105; RESP 13–36
[2016-12-16] MEDS: CEFAZOLIN 1 GM/50 ML (PMX) 50 ML IVPB SCH ×3 (02:29→12:22)
[2016-12-16 05:56] LABS: HEMATOCRIT 38.5 % (37.0-47.0); HEMOGLOBIN 12.8 g/dl (12.0-16.0)
[2016-12-16 06:20] LABS: CALCIUM 8.4 mg/dl (8.4-10.2); CREATININE 0.68 mg/dl (0.44-1.00); POTASSIUM 4.3 mmol/L (3.5-5.1)
[2016-12-16] MEDS: NS + KCL 20 MEQ 1,000 ML IV SCH ×3 (06:51→19:37)
[2016-12-16] MEDS: METOPROLOL 25 MG TAB PO SCH ×2 (08:47→21:00)
--- NOTE | 2016-12-16 13:40 | PN ---
Date/Time of Note Date/Time of Note DATE: 12/16/16 TIME: 13:32 Assessment/Plan VTE Prophylaxis VTE Prophylaxis Intervention: ambulation, SCD's Lines/Catheters IV Catheter Type (from Nrsg): Saline Lock Central line still needed: No Urinary Cath still in place: Yes Reason Cath still needed: other (indicate) (Pt has not been oob and seen by PT/ OT yet) Assessment/Plan Chief Complaint/Hosp Course s/p L5-S1 TLIF with ISF. POD #1 Pain well controlled Very minimal pain , off telephone order dispatcher GLENN with moderate drainage Plan okay to downgrade out of icu dc jatinder IS x 10 pt/ot with LSO brace Brace ordered and awaiting delivery Problems: Subjective 24 Hr Interval Summary Free Text/Dictation S: s/p L5-S1 TLIF with ISF . POD #1 denies minimal incisional pain Glenn with moderate drainage LE radic pain improving Exam/Review of Systems Vital Signs Vitals Vital Signs Date Time Temp Pulse Resp B/P Pulse Ox O2 Delivery O2 Flow Rate FiO2 12/16/16 12:00 98.1 76 21 104/65 97 Nasal Cannula 12/16/16 08:00 3.0 Intake and Output 12/15/16 12/15/16 12/16/16 15:00 23:00 07:00 Intake Total 1500 ml 950 ml Output Total 405 ml 520 ml Balance 1095 ml 430 ml Exam Constitutional: alert Psych: no complaints Neurological: other (MS: AAOX4 CN: PERRL M: FC x 4 , 5/5 strength S: Grossly intact and improving ) Skin: other (Surgica Site: CDI ) Results Result Diagram: 12/16/1624 12/16/16 0526 Results 24 hrs Laboratory Tests Test 12/16/16 05:24 12/16/16 05:26 Hemoglobin 12.8 Hematocrit 38.5 Sodium Level 140 Potassium Level 4.3 Chloride Level 108 Carbon Dioxide Level 26 Anion Gap 10 Blood Urea Nitrogen 16 Creatinine 0.68 Glucose Level 169 Calcium Level 8.4 Medications Medications Current Medications Acetaminophen/ Hydrocodone Bitart ([place] (5/325)) 2 tab Q4H PRN PO PAIN LEVEL 6 -10; Start 12/15/16 at 20:00; Status Future Hold Hydromorphone HCl (Dilaudid EYELET MAKER) Q4PCA IV ; Start 10/10/17 at 20:00 Naloxone HCl 0.2 mg 0.2 mg Q2M PRN IV RR 8 BREATHS/MIN OR LESS; Start at 20:00 Potassium Chloride/Sodium Chloride (NS-KCl 20 Meq) 1,000 ml @ 100 mls/hr Q10H IV Last administered on 12/16/16 07:51; Admin Dose 100 MLS/HR; Start at 20:00 Metoprolol Tartrate (Lopressor) 50 mg BID PO Last administered on 12/16/16 08 :47; Admin Dose 50 MG; Start 12/15/16 at 23:00 Hydralazine HCl (Apresoline) 20 mg Q6H PRN IV ELEVATED SYSTOLIC BP; Start 12/22 at 23:00 Morphine Sulfate (morphine) 1 mg Q3H PRN IV PAIN LEVEL 4-6; Start 12/15/16 at 23:00 Ondansetron HCl (Zofran Inj) 4 mg Q4H PRN IV NAUSEA AND/OR VOMITING; Start 12/22 at 23:00 KIMMIE BASHIR NP Dec 16, 2016 13:40
[2016-12-17 02:00] VITALS: BP 108/55; RESP 19
--- NOTE | 2016-12-17 04:17 | HP ---
DATE OF ADMISSION: 12/15/2016 HISTORY OF PRESENT ILLNESS: The patient is a 61-year-old pleasant female with past medical history positive for hypertension, hyperlipidemia, hypothyroidism and GERD. The patient with chronic lower back pain and also lower extremity radiculopathy. The patient was evaluated by Dr. Herr in surgica l consultation. The patient was brought to the hospital and underwent a posterior lumbar interbody fusion with placement of spinous process fusion device. Postoperatively, the patient was admitted t o intensive care unit for further management. PAST MEDICAL HISTORY: Positive for hypertension, hyperlipidemia, GERD, hypothyroidism, history of a sthma. PAST SURGICAL HISTORY: Status post anterior cervical diskectomy and fusion at C4 through C7 for cer vical spinal stenosis by Dr. Herr in August of 2016. FAMILY HISTORY: Noncontributory. SOCIAL HISTORY: Patient lives at home with her family. The patient denies any tobacco use, denies any illicit drug use. Patient stated she drinks alcohol occasionally. ALLERGIES: NO KNOWN ALLERGIES. HOME MEDICATIONS: Include: 1. Ventolin. 2. Vitamin D3. 3. Flonase. 4. Levothyroxine. 5. Cozaar. 6. Zantac. 7. Omeprazole. 8. Simvastatin. REVIEW OF SYSTEMS: The patient denies any fever, denies any chills, denies nausea and vomiting. A 10-point review of systems is negative unless what is mentioned in HPI. PHYSICAL ASSESSMENT: GENERAL: Well-developed, well-nourished female currently is awake, alert, sitting in bed, eating allison nch. VITAL SIGNS: Temperature 98.1, pulse is 72, blood pressure is 108/58, respiratory rate is 16, oxyge n saturation 97% on 2 liters nasal cannula. HEENT: Head is atraumatic, normocephalic. Pupils equal, round, reactive to light and accommodation . Oral mucosa is pink and moist. NECK: Supple, no cervical lymphadenopathy, no thyromegaly. CHEST: Lungs clear bilaterally. There is no rhonchi, wheezes, rales noted. CARDIOVASCULAR: Normal S1, S2. No murmurs, gallops, clicks, rubs noted. ABDOMEN: Round, soft, nondistended, nontender. Bowel sounds present. EXTREMITIES: No edema, clubbing, cyanosis. GENITOURINARY: The patient has a [place] catheter. SKIN: Patient has lower back incision with intact dressing and a surgical drain. The patient also has a left radial A-line. SKIN: There is no rash, petechiae noted. NEUROLOGIC: Patient is awake, alert and oriented x4, moves all extremities. No focal deficits note d. LABORATORY DATA: Hemoglobin 12.8, hematocrit 38.5. Chemistry: Sodium 140, potassium 4.3, chloride 108, carbon dioxide 26, anion gap 10, BUN 16, creatinine 0.68, glucose 169, calcium 8.4. ASSESSMENT AND PLAN: 1. Low back pain with lower extremity radiculopathy status post posterior lumbar interbody fusion. Continue morphine for pain and Zofran p.r.n. for nausea, incentive spirometer while patient is awak e. Continue to follow up surgical recommendation. 2. Hypertension. Continue hydralazine and metoprolol and monitor blood pressure. 3. Hypothyroidism. Continue Synthroid. 4. Hyperlipidemia. We will resume statin. 5. Gastroesophageal reflux disease. Continue omeprazole. Continue sequential compression device f or deep venous thrombosis prophylaxis. Further recommendations based on clinical course. Plan of c are discussed with Dr. Brooks. Dictated By: MARY STOREY DRY CLIPPER TENDER for FELICIA BROOKS MD SR/NTS Conf#: [id number] DID#: [id number]
[2016-12-17] MEDS: PANTOPRAZOLE (EC) 40 MG TAB PO SCH (05:08)
[2016-12-17 05:44] LABS: BASOPHILS % 0.3 % (0.0-2.0); EOSINOPHILS # 0.1 10^3/ul (0.0-0.5); EOSINOPHILS % 0.6 % (0.0-7.0); HEMATOCRIT 39.3 % (37.0-47.0); HEMOGLOBIN 13.2 g/dl (12.0-16.0); LYMPHOCYTES # 2.3 10^3/ul (0.8-2.9); LYMPHOCYTES % 22.6 % (15.0-51.0); MEAN CORPUSCULAR HEMOGLOBIN 30.8 pg (29.0-33.0); MEAN CORPUSCULAR HGB CONC 33.6 g/dl (32.0-37.0); MEAN CORPUSCULAR VOLUME 91.6 fl (82.0-101.0); MEAN PLATELET VOLUME 11.2 fl (7.4-10.4); MONOCYTES % 10.2 % (0.0-11.0); NEUTROPHIL # 6.6 10^3/ul (1.6-7.5); PLATELET COUNT 194 10^3/UL (140-415); RED BLOOD COUNT 4.29 10^6/ul (4.20-5.40); RED CELL DISTRIBUTION WIDTH 12.8 % (11.5-14.5)
[2016-12-17 06:01] LABS: CALCIUM 8.4 mg/dl (8.4-10.2); CREATININE 0.66 mg/dl (0.44-1.00); POTASSIUM 3.9 mmol/L (3.5-5.1)
[2016-12-17] MEDS: NS + KCL 20 MEQ 1,000 ML IV SCH ×2 (06:17→09:51)
[2016-12-17] MEDS: LEVOTHYROXINE 75 MCG TAB PO SCH (06:19)
[2016-12-17 08:07] VITALS: BP 120/69; RESP 18
[2016-12-17] MEDS ORDERED: LOSARTAN 50 MG TAB PO SCH (09:00)
[2016-12-17] MEDS: METOPROLOL 25 MG TAB PO SCH ×3 (09:00→20:21)
[2016-12-17 09:50] VITALS: BP_SYST 112; BP_SYST 78; BP_DIAS 43; BP_DIAS 64; PULSE 75; RESP 16
[2016-12-17] MEDS ORDERED: AL HYDROX/MG HYDROX/SIMETH 30 ML CUP PO PRN (12:30)
--- NOTE | 2016-12-17 12:30 | PN ---
Date/Time of Note Date/Time of Note DATE: 12/17/16 TIME: 12:26 Assessment/Plan VTE Prophylaxis VTE Prophylaxis Intervention: ambulation Lines/Catheters IV Catheter Type (from Nrsg): Saline Lock Central line still needed: No Urinary Cath still in place: No Assessment/Plan Chief Complaint/Hosp Course s/p L5-S1 TLIF with ISF. POD #[address] lspine stable Surgical site: CDI BM x 1 Bilat LE radic pain improving Plan cont pain management IS X 10 pt/ot with LSO brace DC janette drain DC F/C DC plan okay from NS point of view if stable overnight. Follow in 2 weeks Cont LSO brace when OOB and NO heavy lifting okay to shower Wednesday Problems: Subjective 24 Hr Interval Summary Free Text/Dictation S: S/P L5-S1 TLIF with ISF placement. POD #2 LE radic pain improving and nearly resolved Ambulating with pt/ot today Expected incisional pain Surgical site: CDI JANETTE with minimal drainage Exam/Review of Systems Vital Signs Vitals Vital Signs Date Time Temp Pulse Resp B/P Pulse Ox O2 Delivery O2 Flow Rate FiO2 12/17/16 09:50 75 16 78/43 95 2.0 12/17/16 08:07 98.0 12/17/16 08:00 Nasal Cannula Intake and Output 12/16/16 12/16/16 12/17/16 15:00 23:00 07:00 Intake Total 600 ml 150 ml 1000 ml Output Total 725 ml 400 ml 2720 ml Balance -125 ml -250 ml -1720 ml Exam Gen: NAD MS: AAOX4 CN: PERRL, FS, TML M: FC x 4 , 5/5 strength S: LE radic pain nearly resolved Surgical site: CDI Results Result Diagram: 12/17/16 0453 12/17/16 0453 Results 24 hrs Laboratory Tests Test 12/17/16 04:53 White Blood Count 10.0 Red Blood Count 4.29 Hemoglobin 13.2 Hematocrit 39.3 Mean Corpuscular Volume 91.6 Mean Corpuscular Hemoglobin 30.8 Mean Corpuscular Hemoglobin Concent 33.6 Red Cell Distribution Width 12.8 Platelet Count 194 Mean Platelet Volume 11.2 H Neutrophils % 66.0 Lymphocytes % 22.6 Monocytes % 10.2 Eosinophils % 0.6 Basophils % 0.3 Nucleated Red Blood Cells % 0.0 Neutrophils # 6.6 Lymphocytes # 2.3 Monocytes # 1.0 H Eosinophils # 0.1 Basophils # 0.0 Nucleated Red Blood Cells # 0.0 Sodium Level 141 Potassium Level 3.9 Chloride Level 107 Carbon Dioxide Level 28 Anion Gap 10 Blood Urea Nitrogen 9 Creatinine 0.66 Glucose Level 131 Calcium Level 8.4 Medications Medications Current Medications Acetaminophen/ Hydrocodone Bitart ([place] (5/325)) 2 tab Q4H PRN PO PAIN LEVEL 6 -10; Start 12/15/16 at 20:00; Status Future Hold Hydromorphone HCl (Dilaudid RESIDENT PHYSICIAN IN RADIOLOGY) Q4PCA IV ; Start 12/15/16 at 20:00 Naloxone HCl 0.2 mg 0.2 mg Q2M PRN IV RR 8 BREATHS/MIN OR LESS; Start at 20:00 Potassium Chloride/Sodium Chloride (NS-KCl 20 Meq) 1,000 ml @ 70 mls/hr [id number] IV Last administered on 12/17/16 09:51; Admin Dose 70 MLS/HR; Start 12/15/16 at 20:00 Hydralazine HCl (Apresoline) 20 mg Q6H PRN IV ELEVATED SYSTOLIC BP; Start 12/22 at 23:00 Morphine Sulfate (morphine) 1 mg Q3H PRN IV PAIN LEVEL 4-6 Last administered on 12/17/16 06:20; Admin Dose 1 MG; Start 12/15/16 at 23:00 Ondansetron HCl (Zofran Inj) 4 mg Q4H PRN IV NAUSEA AND/OR VOMITING; Start 12/22 at 23:00 Metoprolol Tartrate (Lopressor) 25 mg BID PO ; Start 12/16/16 at 21:00 Pantoprazole (Protonix Tab) 40 mg DAILY@06 PO Last administered on 12/17/16 05:08; Admin Dose 40 MG; Start 12/17/16 at 06:00 Al Hydrox/Mg Hydrox/Simethicone (Mag-Al Plus) 30 ml Q6H PRN PO GASTROINTESTINAL UPSET; Start 12/17/16 at 12:30 KIMMIE BASHIR NP Dec 17, 2016 12:30
[2016-12-17 14:15] VITALS: BP 108/55; RESP 18
[2016-12-17 20:09] VITALS: BP 125/66; RESP 20
--- NOTE | 2016-12-17 20:43 | PN ---
Date/Time of Note Date/Time of Note DATE: 12/17/16 TIME: 20:43 Assessment/Plan Lines/Catheters IV Catheter Type (from Nrsg): Saline Lock Urinary Cath still in place: No Assessment/Plan Chief Complaint/Hosp Course 1. Low back pain with lower extremity radiculopathy status post posterior lumbar interbody fusion. Continue morphine for pain and Zofran p.r.n. for nausea, incentive spirometer while patient is awake. Continue to follow up surgical recommendation. 2. Hypertension. Continue hydralazine and metoprolol and monitor blood pressure. 3. Hypothyroidism. Continue Synthroid. 4. Hyperlipidemia. We will resume statin. 5. Gastroesophageal reflux disease. Continue omeprazole. Continue sequential compression device for deep venous thrombosis prophylaxis. Further recommendations based on clinical course. Plan of care discussed with Dr. Collado. Problems: Exam/Review of Systems Vital Signs Vitals Vital Signs Date Time Temp Pulse Resp B/P Pulse Ox O2 Delivery O2 Flow Rate FiO2 12/17/16 20:09 98.6 20 125/66 98 12/17/16 14:15 74 12/17/16 09:50 2.0 12/17/16 08:00 Nasal Cannula Intake and Output 12/16/16 12/16/16 12/17/16 15:00 23:00 07:00 Intake Total 600 ml 150 ml 1000 ml Output Total 725 ml 400 ml 2720 ml Balance -125 ml -250 ml -1720 ml Results Result Diagram: 12/17/16 0453 12/17/16 0453 Results 24 hrs Laboratory Tests Test 12/17/16 04:53 White Blood Count 10.0 Red Blood Count 4.29 Hemoglobin 13.2 Hematocrit 39.3 Mean Corpuscular Volume 91.6 Mean Corpuscular Hemoglobin 30.8 Mean Corpuscular Hemoglobin Concent 33.6 Red Cell Distribution Width 12.8 Platelet Count 194 Mean Platelet Volume 11.2 H Neutrophils % 66.0 Lymphocytes % 22.6 Monocytes % 10.2 Eosinophils % 0.6 Basophils % 0.3 Nucleated Red Blood Cells % 0.0 Neutrophils # 6.6 Lymphocytes # 2.3 Monocytes # 1.0 H Eosinophils # 0.1 Basophils # 0.0 Nucleated Red Blood Cells # 0.0 Sodium Level 141 Potassium Level 3.9 Chloride Level 107 Carbon Dioxide Level 28 Anion Gap 10 Blood Urea Nitrogen 9 Creatinine 0.66 Glucose Level 131 Calcium Level 8.4 Medications Medications Current Medications Acetaminophen/ Hydrocodone Bitart ([place] (5/325)) 2 tab Q4H PRN PO PAIN LEVEL 6 -10; Start 12/15/16 at 20:00; Status Future Hold Hydromorphone HCl (Dilaudid MATTRESS FILLER) Q4PCA IV ; Start 12/15/16 at 20:00 Naloxone HCl (Narcan) 0.2 mg Q2M PRN IV RR 8 BREATHS/MIN OR LESS; Start at 20:00 Hydralazine HCl (Apresoline) 20 mg Q6H PRN IV ELEVATED SYSTOLIC BP; Start 12/22 at 23:00 Morphine Sulfate (morphine) 1 mg Q3H PRN IV PAIN LEVEL 4-6 Last administered on 12/17/16 06:20; Admin Dose 1 MG; Start 12/15/16 at 23:00 Ondansetron HCl (Zofran Inj) 4 mg Q4H PRN IV NAUSEA AND/OR VOMITING; Start 12/22 at 23:00 Metoprolol Tartrate (Lopressor) 25 mg BID PO ; Start 12/16/16 at 21:00 Pantoprazole (Protonix Tab) 40 mg DAILY@06 PO Last administered on 12/17/16 05:08; Admin Dose 40 MG; Start 12/17/16 at 06:00 Al Hydrox/Mg Hydrox/Simethicone (Mag-Al Plus) 30 ml Q6H PRN PO GASTROINTESTINAL UPSET Last administered on 12/17/16 13:02; Admin Dose 30 ML; Start 12/17/16 at 12:30 SANDY FRANK Dec 17, 2016 20:43
[2016-12-18 03:20] VITALS: BP 122/60; RESP 18
[2016-12-18 05:15] LABS: BASOPHILS % 0.4 % (0.0-2.0); EOSINOPHILS # 0.1 10^3/ul (0.0-0.5); EOSINOPHILS % 0.8 % (0.0-7.0); HEMATOCRIT 38.4 % (37.0-47.0); LYMPHOCYTES # 2.9 10^3/ul (0.8-2.9); LYMPHOCYTES % 27.1 % (15.0-51.0); MEAN CORPUSCULAR HEMOGLOBIN 30.7 pg (29.0-33.0); MEAN CORPUSCULAR HGB CONC 33.9 g/dl (32.0-37.0); MEAN CORPUSCULAR VOLUME 90.8 fl (82.0-101.0); MEAN PLATELET VOLUME 11.1 fl (7.4-10.4); MONOCYTE # 1.1 10^3/ul (0.3-0.9); MONOCYTES % 10.1 % (0.0-11.0); NEUTROPHIL # 6.5 10^3/ul (1.6-7.5); NEUTROPHILS % 61.3 % (39.0-77.0); PLATELET COUNT 190 10^3/UL (140-415); RED BLOOD COUNT 4.23 10^6/ul (4.20-5.40); RED CELL DISTRIBUTION WIDTH 12.7 % (11.5-14.5); WHITE BLOOD COUNT 10.6 10^3/ul (4.8-10.8)
[2016-12-18 05:42] LABS: CALCIUM 8.9 mg/dl (8.4-10.2); CREATININE 0.73 mg/dl (0.44-1.00); POTASSIUM 3.9 mmol/L (3.5-5.1)
[2016-12-18] MEDS: PANTOPRAZOLE (EC) 40 MG TAB PO SCH (06:05)
[2016-12-18] MEDS: LEVOTHYROXINE 75 MCG TAB PO SCH (06:06)
[2016-12-18 07:00] VITALS: BP 117/67; RESP 18
[2016-12-18] MEDS: METOPROLOL 25 MG TAB PO SCH (09:00)
[2016-12-18 14:00] VITALS: BP 119/63; RESP 18
[2016-12-18] MEDS ORDERED: TRAM50TA2 PO (15:38)
--- NOTE | 2016-12-18 19:38 | DS ---
Date/Time of Note Date/Time of Note DATE: 12/18/16 TIME: 19:36 Discharge Summary Admission/Discharge Info Admit Date/Time Dec 15, 2016 at 14:11 Discharge Date/Time Dec 18, 2016 at 18:35 Patient Condition: Stable Hx of Present Illness HISTORY OF PRESENT ILLNESS: The patient is a 61-year-old pleasant female with past medical history positive for hypertension, hyperlipidemia, hypothyroidism and GERD. The patient with chronic lower back pain and also lower extremity radiculopathy. The patient was evaluated by Dr. Herr in surgical consultation. The patient was brought to the hospital and underwent a posterior lumbar interbody fusion with placement of spinous process fusion device. Postoperatively, the patient was admitted to intensive care unit for further management. Hospital Course 1. Low back pain with lower extremity radiculopathy status post posterior lumbar interbody fusion. Continue morphine for pain and Zofran p.r.n. for nausea, incentive spirometer while patient is awake. Continue to follow up surgical recommendation. 2. Hypertension. Continue hydralazine and metoprolol and monitor blood pressure. 3. Hypothyroidism. Continue Synthroid. 4. Hyperlipidemia. We will resume statin. Home Meds Active Scripts Tramadol HCl (Tramadol HCl) 50 Mg Tablet, 50 MG PO Q6H Y for PAIN, #30 TAB Prov:MARY STOREY 12/18/16 Reported Medications Cholecalciferol* (Vitamin D3*) 1,000 Unit Tablet, 1000 UNIT PO DAILY, TAB 12/15/16 Simvastatin* (Zocor*) 20 Mg Tablet, 20 MG PO QHS, #30 TAB 12/15/16 Albuterol Sulfate* (Ventolin HFA*) 18 Gm Hfa.aer.ad, 2 PUFF INHALATION Q4H, #1 INHALER 12/15/16 Fluticasone Propionate (Flonase Allergy Relief) 9.9 Ml [place].susp, 2 SPRAY NASAL DAILY, #1 BOTTLE TO EACH NOSTRIL 08/28/16 Levothyroxine Sodium* (Levothyroxine Sodium*) 75 Mcg Tablet, 75 MCG PO BEFORE BREAKFAST, #30 TAB 08/28/16 Calcium Carbonate-Vitamin D3 (Calcium 500 + D Tablet) 1 Each Tablet, 1 TAB PO DAILY, TAB 08/28/16 Losartan Potassium* (Losartan Potassium*) 50 Mg Tablet, 50 MG PO DAILY, TAB 08/28/16 Omeprazole* (Omeprazole*) 20 Mg Capsule., 20 MG PO DAILY, #30 CAP 08/28/16 Discontinued Reported Medications Ranitidine Hcl* (Zantac*) 300 Mg Tablet, 300 MG PO HS, #30 TAB 08/28/16 [Cyclobenzaprine] No Conflict Check 11/19/16 [Advil] No Conflict Check 11/19/16 Simvastatin* (Simvastatin*) 5 Mg Tablet, 20 MG PO QHS, #30 TAB 08/28/16 Vit D3/Folic Acid/B2/B6/B12 (Folgard Tablet) 1 Each Tablet, 1 TAB PO DAILY, TAB 08/28/16 Beclomethasone Dip* (Qvar 40*) 7.3 Gm Inha, 2 PUFF INH BID, #1 INHALER 08/28/16 Albuterol Sulfate (Proair Respiclick) 90 Mcg Aer.pow.ba, 2 PUFFS INHALATION Q6, #1 BOTTLE 08/28/16 Follow-up Plan Follow up with Dr Herr in 2 weeks Cont LSO brace when OOB and NO heavy lifting okay to shower Wednesday Primary Care Provider [facility] Pending Labs Laboratory Tests Test 12/18/16 04:27 White Blood Count 10.610^3/ul (4.8-10.8) Red Blood Count 4.2310^6/ul (4.20-5.40) Hemoglobin 13.0g/dl (12.0-16.0) Hematocrit 38.4% (37.0-47.0) Mean Corpuscular Volume 90.8fl (82.0-101.0) Mean Corpuscular Hemoglobin 30.7pg (29.0-33.0) Mean Corpuscular Hemoglobin Concent 33.9g/dl (32.0-37.0) Red Cell Distribution Width 12.7% (11.5-14.5) Platelet Count 44179^3/UL (140-415) Mean Platelet Volume 11.1fl (7.4-10.4) Neutrophils % 61.3% (39.0-77.0) Lymphocytes % 27.1% (15.0-51.0) Monocytes % 10.1% (0.0-11.0) Eosinophils % 0.8% (0.0-7.0) Basophils % 0.4% (0.0-2.0) Nucleated Red Blood Cells % 0.0/100WBC (0.0-0.0) Neutrophils # 6.510^3/ul (1.6-7.5) Lymphocytes # 2.910^3/ul (0.8-2.9) Monocytes # 1.110^3/ul (0.3-0.9) Eosinophils # 0.110^3/ul (0.0-0.5) Basophils # 0.010^3/ul (0.0-0.1) Nucleated Red Blood Cells # 0.010^3/ul (0.0-0.0) Sodium Level 143mmol/L (135-144) Potassium Level 3.9mmol/L (3.5-5.1) Chloride Level 108mmol/L (97-110) Carbon Dioxide Level 26mmol/L (21-31) Anion Gap 13 (8-16) Blood Urea Nitrogen 15mg/dl (7-20) Creatinine 0.73mg/dl (0.44-1.00) Glucose Level 134mg/dl (70-220) Calcium Level 8.9mg/dl (8.4-10.2) MARY STOREY Dec 18, 2016 19:38
== END 2016-12-18 18:35 | disposition home or self-care (01) | DRG 460 ==
LOC: REC 14:11 → EDSTATUS 14:30 → ICU 19:59 → MS1 12-16 17:05
PROVIDERS: ADMIT Neurological Surgery; ATTEND Internal Medicine
PROC: 0SB40ZZ Excision of Lumbosacral Disc, Open Approach (ICD-10-PCS; 2016-12-15)
PROC: 0SG30AJ Fusion of Lumbosacral Joint with Interbody Fusion Device, Posterior Approach, Anterior Column, Open Approach (ICD-10-PCS; principal; 2016-12-15 16:00)
DX: M54.17 Radiculopathy, lumbosacral region (principal); I10 Essential (primary) hypertension; E78.5 Hyperlipidemia, unspecified; E03.9 Hypothyroidism, unspecified; K21.9 Gastro-esophageal reflux disease without esophagitis; E66.9 Obesity, unspecified; Z68.34 Body mass index [BMI] 34.0-34.9, adult; Z98.1 Arthrodesis status
CPT/HCPCS: 72110; 72131; 80048; 85014; 85018; 85025; 87081; 88304; 97116; 97161; 97530; J0131; J0690; J1100; J1170; J1644; J2250; J2270; J2405; J2710; J2765; J2795; J3010; J3480; J7999